=== PATIENT | male | born 1995 | race Caucasian/White ===

== ENCOUNTER 2017-05-05 02:16 | Emergency (ER) | payer OTHER ==
[~2017-05-05] VITALS: Ht 182.9 cm; Wt 92.0 kg
[2017-05-05 02:22] VITALS: TEMP 37.2; Ht 182.9 cm; Wt 92.0 kg
[2017-05-05] MEDS ORDERED: LIDOCAINE/EPINEPH/TETRACAINE 1 EA SYR EXT STA (02:46)
--- NOTE | 2017-05-05 03:32 | EMERGENCY ROOM VISIT NOTE ---
ED Visit Note First contact with patient: 02:19 CHIEF COMPLAINT: Facial laceration HISTORY OF PRESENT ILLNESS: This is a 21-year-old male presents to the emergency department with complaint of facial laceration. He states that he fell striking his face on the ground. He denies loss of consciousness, neck pain, headache, broken or loose teeth, chest pain, shortness of breath, nausea or vomiting. 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 His bleeding is currently controlled prior to arrival. He has a laceration of his upper lip as well as multiple lacerations within the mouth. His tetanus is up-to-date. No alcohol today, states it has been several hours since his last drink. REVIEW OF SYSTEMS: A complete 10 point review of systems was reviewed with the patient with pertinent positives and negatives as per history of present illness. All else were negative. PMH: The patient is healthy; there is no significant medical or surgical history. SOCIAL HISTORY: Patient lives at home. PHYSICAL EXAM: Vital Signs: Reviewed Nurse's notes. The patient is alert, oriented, and coherent. Pupils are round, equal, and react briskly to light. There is a laceration over the upper lip whose edges are gaping apart with traction. It is not through and through to the mouth. It is 0.5 cm in length. There is no active bleeding and no foreign material in the wound. There is a superficial laceration on the internal lower lip, and abrasion of the tip of the tongue. There are no lacerations across the vermilion border. No active bleeding. No loose or broken teeth noted. No pain with opening and closing the jaw. No facial tenderness. Neuro exam is intact with no focal deficits, normal coordination and gait, normal speech. IMAGING: CT SCAN OF THE BRAIN WITHOUT IV CONTRAST CLINICAL HISTORY: Fall with head injury. Reported history of hemophilia. COMPARISON STUDY: No priors. TECHNIQUE: Unenhanced axial CT scan of the brain is performed from the vertex to the skull base. A dose lowering technique was utilized adhering to the principles of ALARA. CT DOSE: 766.23 mGy.cm FINDINGS: Brain parenchyma: The brain parenchyma is normal in appearance. There is no hemorrhage, mass effect, or evidence of acute territorial ischemia by CT criteria. Willingham-white matter is preserved. No extra-axial fluid collection is seen. Ventricles, sulci, cisterns: Normal in configuration. Intracranial vasculature: The visualized intracranial vasculature at the skull base is normal in appearance. Calvarium: There is no depressed calvarial fracture. Soft tissues: There is minimal posterior scalp contusion. No large soft tissue hematoma is identified. Sinuses and mastoids: The visualized paranasal sinuses are clear. The mastoid air cells are well pneumatized. Orbits: The bony orbits are grossly intact. IMPRESSION: No acute intracranial abnormality. ----- CT SCAN OF THE FACIAL BONES WITHOUT IV CONTRAST CLINICAL HISTORY: Fall with head injury. Reported history of hemophilia. COMPARISON STUDY: CT of the brain performed concurrently on 05/05/2017. TECHNIQUE: High-resolution CT scan of the facial bones is performed. Images are reviewed in the axial, sagittal, and coronal planes. IV contrast was not administered for this examination. A dose lowering technique was utilized adhering to the principles of ALARA. FINDINGS: The skeletal structures are well mineralized. There is no evidence of facial bone fracture. The bony orbits are intact and the orbital contents are within normal limits. The zygomatic arches, nasal bones, and pterygoid plates are preserved. The maxilla and mandible are intact. Mild degenerative change is noted at the temporomandibular joints. There are no layering blood products within the paranasal sinuses. Trace mucosal thickening is seen in the maxillary antra. The remaining paranasal sinuses are clear. The mastoid air cells are well pneumatized. The visualized calvarium and upper cervical spine are maintained. Partially imaged brain parenchyma is within normal limits. IMPRESSION: There is no evidence of facial bone fracture. EMERGENCY DEPARTMENT COURSE: I examined the patient. Given the history of hemophilia, CT of the head and facial bones was performed to rule out any significant injury, these are read as negative. Verbal consent was obtained from the patient. After achieving appropriate anesthesia with LET gel, the laceration site was cleansed with normal saline and betadine. Three simple interrupted sutures of 6-0 Ethilon were placed with good wound closure, edges well approximated, bleeding controlled. Patient tolerated the procedure well. Neurovascularly intact postprocedure. Occlusive dressing placed. There was a small amount of bleeding noted from the abrasion of the tip of the tongue. I had the patient apply ice cubes to the base of the tongue, which significantly slowed the bleeding. Silver nitrate stick was then applied to perform light cautery to the area, with good hemostasis. Patient felt well to go home. He was encouraged to follow up with his PCP. He will be monitored for 20 minutes post-cautery, if he remains with no bleeding, can be discharged home. Signed out to Lois Kenney PA-C at 0730. Current/Historical Medications No Active Prescriptions or Reported Meds Allergies Coded Allergies: Prednisone (Verified Allergy, Severe, HIVES, 05/05/17) Vital Signs Date Time Temp Pulse Resp B/P (MAP) Pulse Ox O2 Delivery O2 Flow Rate FiO2 05/05/17 09:06 80 18 130/67 99 05/05/17 08:10 82 18 132/67 99 Room Air 05/05/17 06:30 82 18 122/59 99 Room Air 05/05/17 02:22 37.2 99 18 160/81 98 Room Air Medications Administered Medications (Trade) Dose Ordered Sig/Vamsi Route Start Time Stop Time Status Last Admin Dose Admin Tetracaine/ Epinephrine/ Lidocaine (L.e.t. Gel 4%/ 1:100/0.5%) 1 ea UD STAT EXT 05/05/17 02:46 05/05/17 02:48 DC 05/05/17 02:55 1 EA Ondansetron HCl (Zofran Odt) 4 mg ONE ONCE PO 05/05/17 08:30 05/05/17 08:32 DC 05/05/17 08:24 4 MG Departure Information Impression Primary Impression: Lip laceration Dispostion Home / Self-Care Condition GOOD Prescriptions No Active Prescriptions or Reported Meds Referrals No Doctor, Assigned (PCP) Patient Instructions ED Laceration Mouth, [facility] Additional Instructions Follow-up with your PCP, in urgent care, or ER for suture removal in 5-7 days. Keep wound clean and dry. Do not allow any crusting or dried blood to accumulate on sutures. If this occurs, use a 1:1 solution of hydrogen peroxide/ water on a Q-tip to clean the wound. Use an antibiotic ointment for 3-4 days, then let wound dry. Swish and spit with a 50-50 solution of peroxide and water 3-4 times a day for the next few days, to help the cuts inside your mouth heal. Ice and elevate for swelling and pain. Ibuprofen 600 mg and Tylenol 1000 mg every 8 hrs as needed for pain. Keep covered when in sun until sutures removed then SPF 50 or higher for one year. Vitamin E oil if desired two weeks after suture removal for reduction of scar. Please seek immediate medical attention for any signs of infection (increasing pain, redness, swelling, pus drainage, fever/chills). Problem Qualifiers Primary Impression: Lip laceration Encounter type: initial encounter Qualified Codes: S01.511A - Laceration without foreign body of lip, initial encounter
--- NOTE | 2017-05-05 07:36 | DIAGNOSTIC IMAGING REPORT ---
CT SCAN OF THE FACIAL BONES WITHOUT IV CONTRAST CLINICAL HISTORY: Fall with head injury. Reported history of hemophilia. COMPARISON STUDY: CT of the brain performed concurrently on 05/05/2017. TECHNIQUE: High-resolution CT scan of the facial bones is performed. Images are reviewed in the axial, sagittal, and coronal planes. IV contrast was not administered for this examination. A dose lowering technique was utilized adhering to the principles of ALARA. FINDINGS: The skeletal structures are well mineralized. There is no evidence of facial bone fracture. The bony orbits are intact and the orbital contents are within normal limits. The zygomatic arches, nasal bones, and pterygoid plates are preserved. The maxilla and mandible are intact. Mild degenerative change is noted at the temporomandibular joints. There are no layering blood products within the paranasal sinuses. Trace mucosal thickening is seen in the maxillary antra. The remaining paranasal sinuses are clear. The mastoid air cells are well pneumatized. The visualized calvarium and upper cervical spine are maintained. Partially imaged brain parenchyma is within normal limits. IMPRESSION: There is no evidence of facial bone fracture. Electronically signed by: Alonso Blackburn M.D. 05/05/2017 7:35 AM Dictated Date/Time: 05/05/2017 7:32 AM
--- NOTE | 2017-05-05 07:52 | DIAGNOSTIC IMAGING REPORT ---
CT SCAN OF THE BRAIN WITHOUT IV CONTRAST CLINICAL HISTORY: Fall with head injury. Reported history of hemophilia. COMPARISON STUDY: No priors. TECHNIQUE: Unenhanced axial CT scan of the brain is performed from the vertex to the skull base. A dose lowering technique was utilized adhering to the principles of ALARA. CT DOSE: 766.23 mGy.cm FINDINGS: Brain parenchyma: The brain parenchyma is normal in appearance. There is no hemorrhage, mass effect, or evidence of acute territorial ischemia by CT criteria. Willingham-white matter is preserved. No extra-axial fluid collection is seen. Ventricles, sulci, cisterns: Normal in configuration. Intracranial vasculature: The visualized intracranial vasculature at the skull base is normal in appearance. Calvarium: There is no depressed calvarial fracture. Soft tissues: There is minimal posterior scalp contusion. No large soft tissue hematoma is identified. Sinuses and mastoids: The visualized paranasal sinuses are clear. The mastoid air cells are well pneumatized. Orbits: The bony orbits are grossly intact. IMPRESSION: No acute intracranial abnormality. Electronically signed by: Alonso Blackburn M.D. 05/05/2017 7:51 AM Dictated Date/Time: 05/05/2017 7:49 AM
[2017-05-05] MEDS ORDERED: SILVER NITR/POTASSIUM NITRATE 10 APPLICATOR PACK EXT STA (08:19)
[2017-05-05] MEDS ORDERED: ONDANSETRON 4MG OD TAB PO ONE (08:30)
--- NOTE | 2017-05-05 09:05 | EMERGENCY ROOM VISIT NOTE ---
ED Visit Note Before this patient was discharged, I reevaluated the patient. There was no active bleeding from the lip laceration or from the tongue. He was feeling fine. I instructed the patient not to drink any alcohol today. He verbalized understanding. He was instructed if he has any recurrent bleeding from the sites he is to return to the ER at that time for [facility]. The patient was discharged home in stable condition.
[2017-05-05 09:06] VITALS: BP 130/67; PULSE 80; O2SAT 99
== END 2017-05-05 09:07 | disposition home or self-care (01) ==
LOC: C.EDB 02:18
DX: S01.511A Laceration without foreign body of lip, initial encounter (principal); W19.XXXA Unspecified fall, initial encounter